=== PATIENT | male | born 1960 | race Caucasian/White ===

== ENCOUNTER 2017-02-08 14:29 | Outpatient (CLI) | payer BC ==
[2017-02-08 15:44] LABS: Bilirubin Negative (Negative); Blood, Urine Negative (Negative); Glucose, Urine (Dipstick) 250 mg/dL (Negative); Hematocrit 49.6 % (42.0-52.0); Ketone, Urine Negative (Negative); Nitrite Negative (Negative); Protein, Urine (Dipstick) Negative (Neg-Trace); Red Blood Cell (RBC) Count 5.59 mill/uL (4.70-6.10); White Blood Cell (WBC) Count 10.8 thou/uL (4.8-10.8)
[2017-02-08 15:46] LABS: Bacteria/HPF None Seen HPF (None Seen); Hyaline Casts/LPF 0-3 HYALINE CAST LPF (0-3 Hyaline); Squamous Epithelial None Seen HPF (0-3); WBC/HPF 0-3 HPF (0-3)
[2017-02-08 15:53] LABS: PTT 29.6 SEC (22.9-36.1); Prothrombin Time 13.5 SEC (12.0-14.7)
[2017-02-08 16:03] LABS: Anion Gap 12 mmol/L (10-20); BUN (Urea Nitrogen) 10 mg/dL (8.4-25.7); Calc. Creatinine Clearance 0 mL/min (70-130); Calcium 9.7 mg/dL (7.8-10.44); Carbon Dioxide 28 mmol/L (22-29); Chloride 101 mmol/L (98-107); Estimated GFR-MDRD Greater than 90; RBC/HPF None Seen HPF (0-3)
--- NOTE | 2017-02-08 18:09 | EKG ---
Test Reason : Blood Pressure : / mmHG Vent. Rate : 092 BPM Atrial Rate : 092 BPM P-R Int : 182 ms QRS Dur : 088 ms QT Int : 360 ms P-R-T Axes : 035 035 004 degrees QTc Int : 445 ms Normal sinus rhythm Inferior infarct , age undetermined possibly with Q 's III and aVf. Cannot rule out Anterior infarct (cited on or before 04-FEB-2013) Abnormal ECG When compared with ECG of 04-FEB-2013 14:00, Inferior infarct is now Present per Q waves in III and aVF, but doubtful. Confirmed by TREVIN NAVARRETE ([id number]) on 02/08/2017 6:08:48 PM Referred By: ANG Confirmed By:TREVIN NAVARRETE
== END 2017-02-08 14:30 | disposition home or self-care (01) ==
LOC: LABBT 14:29
PROVIDERS: ATTEND Urology
DX: Z01.818 Encounter for other preprocedural examination (principal); N40.1 Benign prostatic hyperplasia with lower urinary tract symptoms
CPT/HCPCS: 80048; 81001; 85027; 85610; 85730; 86850; 86900; 86901; 87086; 93005; 93010

== ENCOUNTER 2017-02-14 08:41 | Inpatient (IN) | payer BC ==
[2017-02-08 14:51] VITALS: BMI 39.9
[2017-02-14] MEDS ORDERED: Levofloxacin 500 mg/D5W 100 ml Premix Bag ONE (11:34)
[2017-02-14] MEDS ORDERED: Fentanyl 250 MCG/5 ML VIAL ONE (13:52)
[2017-02-14] MEDS ORDERED: Ondansetron HCl/PF 4 MG/2 ML Vial ONE (15:46)
[2017-02-14] MEDS ORDERED: Glycopyrrolate 0.2 MG/ML 5 ML SYRINGE ONE (15:46)
[2017-02-14] MEDS ORDERED: Propofol 200 MG/20 ML VIAL ONE (15:46)
[2017-02-14] MEDS ORDERED: Ketorolac Tromethamine 30 MG/ML VIAL ONE (15:46)
[2017-02-14] MEDS ORDERED: Lidocaine 1% PF 5 ML VIAL ONE (15:46)
[2017-02-14] MEDS ORDERED: PHENYLEPHRINE-NS 100 MCG/ML 10 ML SYRINGE ONE (15:46)
[2017-02-14] MEDS ORDERED: Fentanyl 100 MCG/2 ML VIAL ONE (16:01)
[2017-02-14] MEDS ORDERED: B & O ONE (16:16)
[2017-02-14] MEDS ORDERED: hydrALAZINE 20 MG/ML VIAL SLOW IVP PRN (16:30)
[2017-02-14] MEDS ORDERED: Morphine 4 MG/ML Carpuject IVP PRN (16:30)
[2017-02-14] MEDS ORDERED: Oxybutynin 5 MG TAB PO PRN (16:30)
[2017-02-14] MEDS ORDERED: Ondansetron HCl/PF 4 MG/2 ML Vial IVP PRN ×2 (16:30→17:44)
[2017-02-14] MEDS ORDERED: HYDROcodone/Acetaminophen 5/325 mg Tablet PO PRN ×2 (16:30)
[2017-02-14] MEDS ORDERED: diphenhydrAMINE 25 MG CAP PO PRN (16:30)
[2017-02-14] MEDS ORDERED: Mag-Al 1200 mg/1200 mg/30 ML UDCUP PO PRN (16:30)
[2017-02-14] MEDS ORDERED: Dextrose 5% in Water 1,000 ML IV PRN (16:33)
[2017-02-14] MEDS ORDERED: Dextrose 50% Abboject 50 ML SYRINGE SLOW IVP PRN (16:33)
[2017-02-14 17:27] LABS: Anion Gap 13 mmol/L (10-20); BUN (Urea Nitrogen) 14 mg/dL (8.4-25.7); Calc. Creatinine Clearance 157 mL/min (70-130); Calcium 8.8 mg/dL (7.8-10.44); Carbon Dioxide 25 mmol/L (22-29); Chloride 100 mmol/L (98-107); Estimated GFR-MDRD 87
[2017-02-14] MEDS ORDERED: Promethazine HCl 25 MG/ML VIAL IM/IV PRN (17:44)
[2017-02-14] MEDS ORDERED: Hyoscyamine Sulfate SL 0.125 mg Tablet SL SCH (18:00)
--- NOTE | 2017-02-14 19:29 | OP ---
DATE OF PROCEDURE: 02/14/2017 SERVICE: Urology. SURGEON: Ho Dhillon M.D. PREOPERATIVE DIAGNOSIS: Benign prostatic hypertrophy. POSTOPERATIVE DIAGNOSIS: Benign prostatic hypertrophy. PROCEDURE PERFORMED: Transurethral resection of the prostate. INDICATIONS FOR PROCEDURE: Mr. Gregory is a 56-year-old white male with a history of severe BPH. He is currently on medical therapy with partial control of the symptoms, but he states he does not wish to be on medication any further and he would rather have surgery to correct his urination. All risks and benefits of the surgery have been discussed and he has agreed to proceed forward. DESCRIPTION OF PROCEDURE: After identification of armband and verification of consent, the patient w as brought back to the operating room where he underwent general anesthesia with LMA. He was then pl aced in dorsal lithotomy position and prepped and draped in usual sterile fashion. After appropriate timeout, a visual obturator cystoscope was introduced per urethra into the bladder. The prostate wa s extremely hypertrophic and has had been demonstrated on previous cystoscopy. The visual obturator was switched out for the gyrus bipolar resectoscope with prostate loop. Under bipolar cautery, the m edian lobe was resected out first with inspection of both ureteral orifices in clear view. Once medi an lobe was resected, the ureteral orifices were marked medial and distal to the UO for help with lat er identification. The prostate was then resected circumferentially to near proximity of the capsule and all the way to the verumontanum distally. There was significant hypertrophic flaps near the oscar umontanum and these were carefully resected, taking care to avoid the urethral sphincter. Resection was not carried past the verumontanum. The prostate chips were then evacuated using Bette[place]odoc evacuator and then meticulous hemostasis was performed with the coag punctured on the bipolar cautery. Signifi cant amount of hemostasis was required to cauterize a large surface area of the prostate. A few extr a areas of hypertrophy were resected and those evacuated out. Upon final inspection, both ureters we re in orthotopic location unharmed and there were no prostate chips. Hemostasis was reperformed to e nsure that all bleeding spots have been cauterized. The resectoscope was then withdrawn and a 22-[facility] three-way Do catheter inserted per urethra into the bladder. A 30 mL of sterile water placed into the balloon. The patient was then awakened and taken to PACU for recovery in stable condition. A 16-A B&O suppository was placed in the patient's rectum prior to him awakening. COMPLICATIONS: None. ESTIMATED BLOOD LOSS: Minimal. RETAINED TUBES AND DRAINS: A 22-Ivorian three-way Do catheter on CBI. SPECIMENS: Prostate chips. DISPOSITION: The patient will be kept in the hospital overnight for monitoring and CBI. He will und ergo a voiding trial tomorrow assuming his urine is clear and can be discharged home subsequently.
[2017-02-14] MEDS: Docusate 100 MG CAP PO SCH (20:20)
[2017-02-14] MEDS: Hyoscyamine Sulfate SL 0.125 mg Tablet SL SCH (23:51)
[2017-02-15] MEDS: Hyoscyamine Sulfate SL 0.125 mg Tablet SL SCH ×4 (05:09→23:43)
[2017-02-15 05:36] LABS: #Basophils 0.1 thou/uL (0.0-0.2); #Eosinphils 0.1 thou/uL (0.0-0.7); #Lymphocytes 2.6 thou/uL (1.20-3.40); #Monocytes 1.1 thou/uL (0.11-0.59); #Neutrophils 8.4 thou/uL (1.40-6.50); %Basophils 0.5 % (0.0-1.0); %Eosinophils 0.7 % (0.0-10.0); %Lymphocytes 21.2 % (21.0-51.0); %Monocytes 8.8 % (0.0-10.0); Hematocrit 45.3 % (42.0-52.0); Mean Platelet Volume 7.9 fL (7.4-10.4); Red Blood Cell (RBC) Count 5.06 mill/uL (4.70-6.10); White Blood Cell (WBC) Count 12.2 thou/uL (4.8-10.8)
[2017-02-15 05:51] LABS: Anion Gap 11 mmol/L (10-20); BUN (Urea Nitrogen) 14 mg/dL (8.4-25.7); Calc. Creatinine Clearance 166 mL/min (70-130); Calcium 8.8 mg/dL (7.8-10.44); Carbon Dioxide 28 mmol/L (22-29); Chloride 101 mmol/L (98-107); Estimated GFR-MDRD Greater than 90
[2017-02-15] MEDS: Multivit, Therapeutic 1 TAB PO SCH (09:19)
[2017-02-15] MEDS: Atorvastatin Calcium 10 MG TAB PO SCH (09:19)
[2017-02-15] MEDS: metFORMIN 500 MG TAB PO SCH ×2 (09:19→18:00)
[2017-02-15] MEDS: Losartan 25 MG TAB PO SCH (09:19)
[2017-02-15] MEDS: Docusate 100 MG CAP PO SCH ×2 (09:19→19:59)
--- NOTE | 2017-02-15 10:26 | PRG ---
DATE OF SERVICE: 02/15/2017 SUBJECTIVE: The patient states he had an uneventful night. He had some mild bladder spasms, but no significant pain or bother. His CBI was somewhat red last night, requiring increase in his inflow ra te. This cleared up as of the morning and his CBI was held, which is where I am inspecting it now. OBJECTIVE: VITAL SIGNS: Temperature 98.7, pulse 91, respirations 18, blood pressure 140/85, saturation 96% on r oom air. GENERAL: No apparent distress, communicative, and alert. CARDIOVASCULAR: Regular rate and rhythm. CHEST: No increased work of breathing. Symmetric expansion of lungs. ABDOMEN: Soft, nontender, nondistended, positive bowel sounds. GENITOURINARY: Do catheter in place, secured with StatLock. There is oscar red/Joseph-Aid type ur ine in the tubing with the CBI completely off. EXTREMITIES: Sequential compression devices on. No clubbing, cyanosis or edema. LABORATORY DATA: The full set of labs are in the [facility] system, which I have reviewed. Of note, w anca count is 12.2 with hemoglobin of 14.8, creatinine is currently 0.5 with a sodium of 136. ASSESSMENT AND PLAN: This is a 56-year-old white male with severe benign prostatic hypertrophy and o bstruction, status post transurethral resection of the prostate with hematuria, which is slightly mor e significant than where I would like before a voiding trial. I told him that I would like to keep t he catheter in, but I will keep the CBI off for now. I will reevaluate again in a few hours and if h is urine is more red than where it is now, we will restart the CBI and continue to wait until the ble eding slows down before I stopping the CBI and performing a void trial. However, if the urine remain s stable or gets better, we may be able to consider a void trial today and monitoring for 23 hours un til tomorrow at which point he could be discharged. I have discussed this with the patient and he is in agreement with the plan.
[2017-02-15] MEDS: Insulin Regular 300 UNITS/3 ML VIAL SC PRN ×2 (11:23→16:54)
[2017-02-16] MEDS: Hyoscyamine Sulfate SL 0.125 mg Tablet SL SCH (06:07)
[2017-02-16] MEDS: metFORMIN 500 MG TAB PO SCH ×2 (08:15→17:39)
[2017-02-16] MEDS: Docusate 100 MG CAP PO SCH ×2 (08:15→21:11)
[2017-02-16] MEDS: Losartan 25 MG TAB PO SCH (08:15)
[2017-02-16] MEDS: Atorvastatin Calcium 10 MG TAB PO SCH (08:15)
[2017-02-16] MEDS: Multivit, Therapeutic 1 TAB PO SCH (08:15)
[2017-02-16] MEDS ORDERED: Hyoscyamine Sulfate SL 0.125 mg Tablet SL PRN (09:13)
--- NOTE | 2017-02-16 09:34 | PRG ---
DATE OF SERVICE: 02/16/2017 SUBJECTIVE: The patient is doing well. He has no complaints today. He states he has not had a gerard l movement, but he is not complaining of any bladder spasms, pain, chest pain or shortness of breath. He has been up out of bed some. Yesterday, patient's hematuria had looked excess and he did have a small clot in his catheter, which required irrigation. As a result, I did not recommend he go home and kept in the hospital with CBI running overnight. The CBI has been held again this morning for re inspection. OBJECTIVE: VITAL SIGNS: Temperature 98.3, pulse 93, respirations 18, blood pressure 144/88, saturation 94% on r oom air. GENERAL: No apparent distress, communicative and alert. CARDIOVASCULAR: Regular rate and rhythm. CHEST: No increased work of breathing. ABDOMEN: Soft, nontender, nondistended, positive bowel sounds. GENITOURINARY: Do catheter in place with a Joseph-Aid red urine. With CBI reinitiated, it clears u p very quickly to near completely clear urine, but there is a slight blood tinge to it indicating slo w probably venous ooze. The CBI was turned off again. EXTREMITIES: No edema. ASSESSMENT AND PLAN: A 56-year-old white male with hematuria that is persisting after TURP. The hem aturia is slightly excessive, but it appears better today. With the CBI off, I would like to monitor him for few hours in and watch to see what is the amount of blood in his urine does. If it is mild enough, I think he could be discharged with the catheter, but I would not recommend a voiding trial a t this time. If the urine gets very red or he another clot that clogs his catheter, then he will not be suitable for discharge. Otherwise, he will end up in clot retention at home. Then, we will need to reinitiate CBI and keep him in the hospital further. I will change his Levsin to p.r.n. we will start him on MiraLax for his constipation. We will continue to monitor and observe. His blood sugar s are also running quite high and the patient reports that he does take glipizide, which he is curren wendyy not taking. We will restart this medication.
[2017-02-16] MEDS: Insulin Regular 300 UNITS/3 ML VIAL SC PRN ×2 (15:41→22:41)
[2017-02-17] MEDS: Insulin Regular 300 UNITS/3 ML VIAL SC PRN (07:32)
[2017-02-17 08:17] VITALS: BP 138/92; TEMP 98.3
[2017-02-17] MEDS: Losartan 25 MG TAB PO SCH (08:20)
[2017-02-17] MEDS: Multivit, Therapeutic 1 TAB PO SCH (08:21)
[2017-02-17] MEDS: Atorvastatin Calcium 10 MG TAB PO SCH (08:21)
[2017-02-17] MEDS: Docusate 100 MG CAP PO SCH (08:21)
[2017-02-17] MEDS: metFORMIN 500 MG TAB PO SCH (08:24)
[2017-02-17] MEDS ORDERED: Polyethylene Glycol 3350 17 GM Packet PO SCH (09:00)
--- NOTE | 2017-02-17 09:31 | PRG ---
DATE OF SERVICE: 02/17/2017 SUBJECTIVE: The patient states he is feeling well. He has no complaints. He is having no bladder s pasms. He has had bowel movements. He has been up walking around. His catheter has been draining w ell. He has not required any irrigations or flushing overnight and the CBI has remained off for 24 h ours. OBJECTIVE: VITAL SIGNS: Temperature 98.3, pulse 76, respirations 16, blood pressure 138/92, saturation is 92% o n room air. GENERAL: No apparent distress, communicative and alert. CARDIOVASCULAR: Regular rate and rhythm. CHEST: No increased work of breathing. ABDOMEN: Soft, nontender, nondistended, positive bowel sounds. GENITOURINARY: Do catheter in place, secured with StatLock. 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 EXTREMITIES: No edema. ASSESSMENT AND PLAN: This is a 56-year-old white male with benign prostatic hypertrophy status post transurethral resection of prostate, postoperative day #3 with more hematuria than expected postopera tively to be able to be discharged home. His hematuria is resolving and has significantly improved f rom prior. He has gone 24 hours without CBI without any clotting episodes, although his urine is sti ll somewhat red. I think he can be discharged home safely now with a minimal risk of clotting; howev er, I would not recommend that he go home without a catheter since it would be important for him to k eep his bladder drained at all times to avoid the blood from settling in his bladder and forming a bl ood clot. The patient states he is fine with this. Therefore, we will plan a discharge with the Fol ey catheter and he has a follow up with me next at which time we will perform a void trial. In the meantime, I have recommended that he avoid constipation, strenuous activities and long car ri urmila. He should also remain off of his aspirin until his hematuria clears.
--- NOTE | 2017-02-17 09:43 | DIS ---
DATE OF ADMISSION: 02/14/2017 DATE OF DISCHARGE: 02/17/2017 ADMITTING DIAGNOSES: Benign prostatic hypertrophy and bladder outlet obstruction. DISCHARGE DIAGNOSES: 1. Benign prostatic hypertrophy and bladder outlet obstruction. 2. Gross hematuria ADMITTING PHYSICIAN: Ho Dhillon M.D. DISCHARGING PHYSICIAN: Ho Dhillon M.D. PROCEDURES PERFORMED WHILE INPATIENT: Cystoscopy with transurethral resection of the prostate. BRIEF HISTORY: Mr. Gregory is a 56-year-old white male with BPH and significant lower urinary tract s ymptoms which were incompletely controlled on medication. He had elected to undergo a TURP, which he did in the hospital. The full H&P can be found in the scanned portion of the [facility] system. HOSPITAL COURSE: After surgery (please see operative note for details) patient was kept in the hospi [facility] overnight with continuous bladder irrigation. The CBI was stopped in the morning, but unfortunat itz the patient's urine was very red. He ended up having a small clot in his bladder which clogged h is catheter and required irrigation. Therefore, we kept him in the hospital with CBI and again for a nother night. The CBI was held in the next day and the patient was encouraged to drink large amounts of fluid. His urine cleared up significantly with this maneuver; however, he and his elected t o stay 1 additional day into the hospital, which I thought was reasonable to ensure that he did not h ave any further clotting that his catheter continued to drain. By the next night, he had been off CB I for 24 hours and had no further clotting episodes. His urine was a very light red during the dayti me and completely translucent but overnight, it had become a little bit more oscar red secondary to decreased p.o. intake. Nonetheless, he did not have any clotting and I felt that he could be dischar ged, although I recommended that he go home with the catheter. The patient states he is comfortable with this and would like to be discharged home. DISPOSITION: Discharge to home with Do catheter. DISCHARGE CONDITION: Good. DISCHARGE MEDICATIONS: Include resuming all of his home medications except his aspirin which we will hold until the hematuria clears. He also does not no longer need to take any of his BPH medications including Cialis or Flomax. DISCHARGE INSTRUCTIONS: Include no heavy lifting, no strenuous activities. He cannot submerge under water with the catheter in and should not drive with the catheter. He also should avoid having const ipation or doing any heavy lifting over 20 pounds. He should notify me for fevers, non-draining Fole y clots in the catheter bag, abdominal pain or any other concerning signs or symptoms the patient may have. The patient is scheduled for followup with me in next at 2:00 at which time we will perform a void trial.
== END 2017-02-17 12:10 | disposition home or self-care (01) | DRG 713 ==
LOC: SDC 08:41 → SURG A 16:30 → OBSVTOIN 16:30 → SJJU 02-15 18:10
PROVIDERS: ADMIT Urology; ATTEND Urology
PROC: 0VT08ZZ Resection of Prostate, Via Natural or Artificial Opening Endoscopic (ICD-10-PCS; principal; 2017-02-14)
DX: N40.1 Benign prostatic hyperplasia with lower urinary tract symptoms (principal); N13.8 Other obstructive and reflux uropathy; N32.89 Other specified disorders of bladder; R31.9 Hematuria, unspecified; Z79.84 Long term (current) use of oral hypoglycemic drugs; Z79.82 Long term (current) use of aspirin; E11.9 Type 2 diabetes mellitus without complications; Z87.891 Personal history of nicotine dependence; N52.01 Erectile dysfunction due to arterial insufficiency
CPT/HCPCS: 36415; 36416; 80048; 85025; 86850; 86900; 86901; 88305; 90471; 90732; G0009; J1815; J1885; J1956; J2001; J2405; J2704; J3010

== ENCOUNTER 2017-02-23 11:53 | Outpatient (CLI) | payer BC ==
--- NOTE | 2017-02-23 13:07 | CT ---
CT NECK NONCONTRAST: DATE: 02/23/17. HISTORY: A 56-year-old male with R22.1, neck mass. No further information regarding the location of this neck mass has been provided. The patient repor tedly has a history of allergy to iodinated contrast. FINDINGS: The lack of IV contrast limits the sensitivity of this neck CT. There are multiple solid nodules inv olving the left lobe of the thyroid gland. This includes an approximately 2.5 x 2.5 cm solid nodule with mixed intermediate and slightly low attenuation at the upper pole. There is a large, irregularl y shaped, calcification at the mid pole anteriorly involving one of the masses. The calcification is arc-shaped, and has diameters of approximately 2 x 1.5 cm. There is a moderate-sized lobulated sing le nodule or multiple nodules together, in aggregate measuring approximately 3 x 2 x 3.5 cm at the lo wer pole, displacing the trachea slightly to the right. There are at least 2 much smaller, slightly hypodense, nonspecific lesions in the right lobe of the t hyroid gland, on the order of slightly greater than 1 cm in size each. The right lobe of the thyroid gland is much smaller than the left. The larynx is normal. The parapharyngeal, perivertebral, retr opharyngeal, manager solution, submandibular, parotid, carotid, and posterior cervical, spaces, demonstrate no major abnormality. There is a large number of scattered minimally prominent cervical lymph nodes throughout all levels from 1A through 7. This includes multiple slightly enlarged mediastinal lymph nodes. There is mediastinal lipomatosis. The maxillary and sphenoid sinuses are clear. The bilate ral tympanomastoid cavities are clear. No destructive osseous lesion is identified. IMPRESSION: 1. Multinodular goiter consisting of several moderately large solid thyroid nodule in the left lobe. One of these contains coarse calcifications. Recommend further evaluation with thyroid ultrasound. 2. Mediastinal lipomatosis. POS: [facility]
== END 2017-02-23 11:54 | disposition home or self-care (01) ==
LOC: CT 11:53
PROVIDERS: ATTEND Otolaryngology Plastic Surgery within the Head & Neck
DX: R22.1 Localized swelling, mass and lump, neck (principal); E04.2 Nontoxic multinodular goiter; J98.59 Other diseases of mediastinum, not elsewhere classified
CPT/HCPCS: 70490

== ENCOUNTER 2017-03-21 09:45 | Day surgery (SDC) | payer BC ==
[2017-03-20 13:01] VITALS: BMI 39.9
[~2017-03-21 09:45] MED LIST: FLU VACC QS2017-18 36 mo. & older 0.5 ML SYRINGE IM ONE
[2017-03-21] MEDS ORDERED: Sodium Bicarbonate 2.5 MEQ/5 ML VIAL ONE (10:04)
[2017-03-21 10:36] VITALS: BP 145/86; TEMP 98.1
[2017-03-21] MEDS ORDERED: Lidocaine 1% PF 5 ML VIAL ONE (10:37)
--- NOTE | 2017-03-21 11:15 | ULT ---
THYROID SONOGRAM: History: Thyroid nodule. Abnormal CT scan. FINDINGS: The right thyroid lobe is 4.5 cm in length and the left 5.5 cm. Isthmus is 0.4 cm thick. There is oscar y heterogeneous echo texture of each thyroid lobe with multiple solid and cystic masses bilaterally. The largest on the right is complex and measures up to 1.3 cm diameter. On the left, a complex cyst a t the inferior pole is 2.3 cm greatest diameter. A partially calcified mass at the midportion is 2.0 cm. IMPRESSION: Multinodular goiter. Partially calcified mass at the left thyroid lobe will be selected for tissue sa mpling. POS: [facility]
--- NOTE | 2017-03-21 11:31 | ULT ---
SONOGRAPHIC GUIDED FNA LEFT THYROID LOBE MASS: History: Goiter. Left thyroid mass, calcified. FINDINGS: After explaining the procedure and answering all questions, the anterior neck was prepped and draped in the usual sterile fashion. Sterile technique, buffered local anesthesia, sonographic guidance and an anterior midline approach were used to advance a tip of a 25 gauge needle into the thyroid mass. F ine needle aspirate was obtained. A total of six passes were made and submitted to pathology for proc essing. Post procedure imaging shows no evidence of complication. Patient tolerated the procedure wel l and was dismissed in good condition. IMPRESSION: Technically successful sonographic guided FNA left thyroid lobe mass. Pathology is pending. POS: [facility]
== END 2017-03-21 11:20 | disposition home or self-care (01) ==
LOC: ULT 09:45
PROVIDERS: ATTEND Otolaryngology Plastic Surgery within the Head & Neck
PROC: BG44ZZZ Ultrasonography of Thyroid Gland (ICD-10-PCS; principal; 2017-03-21)
PROC: 07D23ZX Extraction of Left Neck Lymphatic, Percutaneous Approach, Diagnostic (ICD-10-PCS; principal; 2017-03-21)
DX: E04.2 Nontoxic multinodular goiter (principal); E04.9 Nontoxic goiter, unspecified; E11.9 Type 2 diabetes mellitus without complications; N52.1 Erectile dysfunction due to diseases classified elsewhere; I77.1 Stricture of artery; Z79.84 Long term (current) use of oral hypoglycemic drugs; Z79.899 Other long term (current) drug therapy; Z91.041 Radiographic dye allergy status; Z90.49 Acquired absence of other specified parts of digestive tract; Z90.89 Acquired absence of other organs; Z98.890 Other specified postprocedural states
CPT/HCPCS: 10022; 76536; 76942; 88173; J2001

== ENCOUNTER 2018-01-08 10:04 | Outpatient (CLI) | payer BC, OTHER ==
--- NOTE | 2018-01-08 13:42 | ULT ---
THYROID ULTRASOUND: Date: 01-08-18 History: Thyroid nodules. Comparison: 03-21-17 FINDINGS: Thyroid gland demonstrates generalized heterogeneity. Right lobe of the thyroid gland measures 4.8 cm x 2.4 cm x 1.9 cm with the left lobe measuring 6.7 cm x 3.2 cm x 3.8 cm. Thyroid gland is slightly l arger in size compared to prior exam. Thyroid isthmus measures 0.3 cm in AP dimension. Again noted are heterogeneous and hyperechoic nodules in each lobe of the thyroid gland. The nodules within the right lobe of the thyroid gland are overall similar to the prior exam. The largest nodule, mid portion of the right lobe of the thyroid gland measuring 1.2 cm with a closely adjacent hypoecho ic nodule measuring 0.8 cm and there is a mixed cystic and solid lesion within the superior pole of t he right lobe the thyroid gland measuring 1.1 cm which is slightly larger in size compared to the christina or exam which previously measured 0.7 cm. A tiny punctate echogenic focus is seen likely related to c alcification within this lesion. The larger complex cystic and solid region in the inferior pole left lobe of the thyroid gland previo usly measuring 2.3 cm in maximal dimensions is now smaller in size measuring 1.2 cm in maximal dimens ions. There is a heterogeneous nodule again seen in the midportion of the left lobe of the thyroid gl and previously measuring 2 cm x 1.6 cm and again measures similar in size measuring 1.9 x 1.6 cm. Ech ogenic areas are seen likely related to associated calcifications, also present on the prior exam. Th ere is a slightly heterogeneous nodule within the midportion of the left lobe of the thyroid gland no t seen on the prior exam which measures 1 cm. IMPRESSION: 1. Enlarged heterogeneous thyroid gland. 2. Multinodular thyroid gland. There is a heterogeneous nodule, stable in size, in the mid portion of the left lobe of the thyroid gland with associated calcifications. POS: [facility]
== END 2018-01-08 10:05 | disposition home or self-care (01) ==
LOC: BICULT 10:04 → ULT 10:05
PROVIDERS: ATTEND Otolaryngology Plastic Surgery within the Head & Neck
DX: E04.1 Nontoxic single thyroid nodule (principal); E04.2 Nontoxic multinodular goiter
CPT/HCPCS: 76536

== ENCOUNTER 2020-04-27 10:13 | Outpatient (CLI) | payer BC ==
--- NOTE | 2020-04-27 10:47 | ULT ---
Ultrasound of thethyroid gland: 04/27/2020 COMPARISON:01/08/2018 HISTORY:Reevaluate thyroid nodule TECHNIQUE: Multiplanar grayscale sonographic imaging of thethyroid gland FINDINGS:The thyroid isthmus measures 4 mm in AP dimension. The right lobe measures 2.1 x 4.7 x 2.1 cm. The left lobe measures 3.4 x 5.9 x 2.6 cm. Detailed assessment of the thyroid gland is slightly limited secondary to diffuse heterogeneity of th e thyroid parenchyma and body habitus. 2 nodules are noted within the right lobe, which includes a 9 x 9 x 11 mm nodule within the posterior lateral mid right lobe. This nodule is solid and isoechoic. There is a 1.0 x 1.0 x 0.7 cm hypoechoic solid nodule within the inferior posterior aspect of the right lobe. There is a vague hypoechoic solid appearing nodule measuring 1.3 x 1.0 x 1.2 cm with probable mild ri m calcification within the lateral aspect of the mid left lobe. Within the posterior inferior aspect of the left lobe there is a 1.2 x 1.0 x 1.0 cm nodule. Differences in technique make comparison to the prior examination quite limited. IMPRESSION:TI-Rads category 4-moderately suspicious. As no nodule measures 1.5 cm or greater, no fine -needle aspiration is advised at this time. However, a follow-up thyroid ultrasound in one year is recommended.
== END 2020-04-27 10:14 | disposition home or self-care (01) ==
LOC: BICULT 10:13
PROVIDERS: ATTEND Otolaryngology Plastic Surgery within the Head & Neck
DX: E04.1 Nontoxic single thyroid nodule (principal)
CPT/HCPCS: 76536